=== PATIENT | female | born 1995 | race Caucasian/White ===

== ENCOUNTER 2023-05-02 15:59 | Emergency (ER) | payer MEDICAID, OTHER ==
[~2023-05-02] VITALS: Ht 160 cm; Wt 77.1 kg
[2023-05-02 15:59] VITALS: BP 117/80
--- NOTE | 2023-05-02 15:59 | NUR ---
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
[2023-05-02] MEDS ORDERED: NS 1000ML 1,000 ML IV STA (16:21)
[2023-05-02] MEDS ORDERED: TORADOL IV STA (16:21)
--- NOTE | 2023-05-02 16:25 | ER.PDOC ---
General Chief Complaint: Abdomen Pain Stated Complaint: RIGHT SIDE PAIN,FEVER Time seen by MD: 16:24 Source: patient Exam Limitations: no limitations History of Present Illness Initial Comments Right flank pain and fever for 3 weeks. Patient was seen by a provider and prescribed antibiotic for kidney infection. She finished taking it and continues to experience same symptoms. She occasionally gets nauseated but no vomiting. Severity/Quality: moderate, sharpness Radiation: no radiation Associated Symptoms: nausea/vomiting Exacerbated by: nothing Relieved By: nothing Allergies: Coded Allergies: Sulfa (Sulfonamide Antibiotics) (Verified Allergy, Unknown, 11/23/22) Vital Signs First Vital Signs Date Time Temp Pulse Resp B/P (MAP) Pulse Ox O2 Delivery O2 Flow Rate FiO2 05/02/23 15:59 98.3 97 18 05/02/23 15:59 98 05/02/23 15:59 117/80 (92) Room Air* 0 21 Last Vital Signs Date Time Temp Pulse Resp B/P (MAP) Pulse Ox O2 Delivery O2 Flow Rate FiO2 05/02/23 15:59 98.3 97 18 117/80 (92) 98 Room Air* 0 21 Past Medical History Medical History: no pertinent history Surgical History: cholecystectomy Family History Significant Family History: no pertinent family hx Social History Smoking: non-smoker Alcohol Use: none Drug Use: none Constitutional: see HPI EENTM: no symptoms reported Respiratory: no symptoms reported Cardiovascular: no symptoms reported Gastrointestinal: no symptoms reported Genitourinary: see HPI All Other Systems: Reviewed and Negative Physical Exam General Appearance: No Apparent Distress, WD/WN Neck: Non-Tender, Full Range of Motion, Supple, Normal Inspection Respiratory: chest non-tender, lungs clear, normal breath sounds, no respiratory distress, no accessory muscle use Cardiovascular: Normal Peripheral Pulses, Regular Rate, Rhythm, No Edema, No Gallop, No JVD, No Murmur Gastrointestinal: Normal Bowel Sounds, Non Tender, Soft Back: Normal Inspection, No Vertebral Tenderness, CVA Tenderness (R) Extremities: Normal Range of Motion, Non-Tender, Normal Inspection, No Pedal Edema, No Calf Tenderness, Normal Capillary Refill, Pelvis Stable 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, No Motor/Sensory Deficits, Alert, Normal Mood/Affect, Oriented x 3 Skin: Normal Color, Warm/Dry Lymphatic: No Adenopathy Results/Orders Results/Orders Orders - LINA VEGA MD Cbc With Auto Diff (05/02/23 16:21) Comprehensive Metabolic Panel (05/02/23 16:21) Urinalysis (05/02/23 16:21) Ct Abd/Pelvis Wo Iv Contrast (05/02/23 16:21) 0.9 % Sodium Chloride (Ns 1000ml) (05/02/23 16:21) Ketorolac Tromethamine (Toradol) (05/02/23 16:21) Hcg Qualitative Serum (05/02/23 16:21) Lactic Acid(Ml) (05/02/23 16:23) 0.9 % Sodium Chloride (Ns 1000ml) (05/02/23 16:26) Ketorolac Tromethamine (Toradol) (05/02/23 16:26) Urine Culture (05/02/23 16:15) Ceftriaxone Sodium (Rocephin) (05/02/23 17:02) Ceftriaxone Sodium (Rocephin) (05/02/23 17:03) Vital Signs Date Time Temp Pulse Resp B/P (MAP) Pulse Ox O2 Delivery O2 Flow Rate FiO2 05/02/23 15:59 98.3 97 18 117/80 (92) 98 Room Air* 0 21 05/02/23 15:59 98.3 97 18 98 05/02/23 15:59 98.3 97 18 Administered Medications Medications (Trade) Dose Ordered Sig/Dior Route PRN Reason Start Time Stop Time Status Last Admin Dose Admin Ceftriaxone Sodium 1000 mg/ Sodium Chloride 100 ml @ 100 mls/hr STAT STAT IV 05/02/23 17:02 05/02/23 18:01 UNV 05/02/23 17:07 100 MLS/HR Ketorolac Tromethamine (Toradol) 30 mg STAT STAT IV 05/02/23 16:21 05/02/23 16:23 DC 05/02/23 16:29 30 MG Sodium Chloride 1,000 ml @ 1,200 mls/hr Q50M STAT IV 05/02/23 16:21 05/02/23 17:10 DC 05/02/23 16:28 1,200 MLS/HR Laboratory Tests Test 05/02/23 16:15 White Blood Count 11.0 10^3/uL (4.5-11.0) Red Blood Count 4.83 10^6/uL (4.00-5.20) Hemoglobin 14.9 g/dL (12.0-15.0) Hematocrit 44.5 % (36.0-46.0) Mean Corpuscular Volume 92.1 fL (78-100) Mean Corpuscular Hemoglobin 30.8 pg (26-34) Mean Corpuscular Hemoglobin Concent 33.5 g/dL (33-36.5) Red Cell Distribution Width 13.1 % (11.5-14.5) Platelet Count 222 10^3/uL (150-400) Mean Platelet Volume 10.7 fL (7.8-11.0) Neutrophils (%) (Auto) 88.7 % (41.0-85.0) H Lymphocytes (%) (Auto) 5.3 % (24.0-44.0) *L Monocytes (%) (Auto) 5.6 % (5.0-12.0) Neutrophils # (Auto) 9.8 10^3/uL (1.8-7.7) H Lymphocytes # (Auto) 0.58 10^3/uL1 (1.0-4.8) L Monocytes # (Auto) 0.6 10^3/uL (0.3-0.8) Absolute Immature Granulocyte (auto 0.02 10^3 u/L (0-2) Absolute Eosinophils (auto) 0.0 10^3/uL (0.0-0.2) Immature Granulocytes % 0.20 % (0.00-0.50) Eosinophils % 0.0 % (0.0-5.0) Basophils % 0.2 % (0.0-0.2) Basophils # 0.0 10^3/uL (0.0-0.1) Urine Collection Type RANDOM Urine Color YELLOW Urine Appearance CLEAR Urine Bilirubin NEGATIVE (NEGATIVE) Urine Ketones 3+ (NEGATIVE) H Urine Specific [place] 1.015 (1.005-1.030) Urine pH 8.5 (4.5-8.0) Urine Protein NEGATIVE (NEGATIVE) Urine Urobilinogen 1.0 E.U./dL (0.2) Urine Nitrate NEGATIVE (NEGATIVE) Urine Leukocyte Esterase TRACE (NEGATIVE) H Urine Glucose (Auto)(UA) NEGATIVE (NEGATIVE) Urine Blood TRACE-INTACT (NEGATIVE) H Urine RBC 2-5 RBC/HPF (NONE SEEN) Urine WBC 10-25 WBC/HPF (0-2) H Urine Squamous Epithelial Cells FEW (<=FEW) Urine Bacteria MODERATE (NONE SEEN) H Sodium Level 139 mmol/L (132-145) Potassium Level 3.6 mmol/L (3.6-5.2) Chloride Level 103.0 mmol/L (96-109) Carbon Dioxide Level 23.3 mmol/L (20.0-32) Anion Gap 16.3 Blood Urea Nitrogen 10 mg/dL (7-18) Creatinine 0.94 mg/dL (0.59-1.40) Estimated GFR () 85.8 (>/=60) Est GFR (CKD-EPI)(Non-Afr [place]) 70.9 (>/=60) BUN/Creatinine Ratio 10.0 (10.0-20.0) Glucose Level 94 mg/dL (70-110) Lactic Acid Level 0.6 mmol/L (0.5-1.9) Calcium Level 9.1 mg/dL (8.4-10.5) Total Bilirubin 0.9 mg/dL (0.2-1.0) Aspartate Amino Transferase (AST) 49 U/L (0-35) H Alanine Aminotransferase (ALT) 73 U/L (12-78) Alkaline Phosphatase 154 U/L (50-136) H Total Protein 8.2 g/dL (6.4-8.2) Albumin 4.0 g/dL (3.4-5.0) Globulin 4.2 Albumin/Globulin Ratio 0.952 Serum HCG, Qualitative NEGATIVE (NEGATIVE) Progress Progress CT abdomen/pelvis: 1. Mildly enlarged liver. 2. Normal appendix. 3. Mild bladder wall thickening noted, with a focus of nondependent gas within the bladder. Could be infectious. Correlate with urinalysis. 4. No urinary system calculus. Alkaline phosphatase 154, rest of chemistry is normal. test is negative. Urinalysis consistent with UTI. WBC is 11.0 and hemoglobin 14.9. Patient received 1 L NS, Toradol and Rocephin. She is feeling better. I reviewed her previous records. I also discussed the results with her. She voices understanding. ER DEPART Departure Time of Disposition: 17:37 Disposition: 01 HOME / SELF CARE / HOMELESS Impression: Primary Impression: UTI (urinary tract infection) Additional Impression: Dehydration Condition: Improved Referrals: PCP,UNKNOWN (PCP) PRIMARY CARE PROVIDER Additional Instructions: Macrobid Tylenol Push fluids at home Follow-up with your PCP in 5-7 days Return to ED if worsening or concerns Duration or Time Spent with Pa: 45 min Problem Qualifiers Primary Impression: UTI (urinary tract infection) Urinary tract infection type: site unspecified Hematuria presence: with hematuria Qualified Codes: N39.0 - Urinary tract infection, site not specified; R31.9 - Hematuria, unspecified LINA VEGA MD May 02, 2023 16:25
[2023-05-02] MEDS ORDERED: TORADOL ONE (16:26)
[2023-05-02] MEDS ORDERED: NS 1000ML 1,000 ML ONE (16:26)
[2023-05-02 16:33] LABS: BILIRUBIN,URINE NEGATIVE (NEGATIVE)
[2023-05-02 16:35] LABS: BASOPHIL % 0.2 % (0.0-0.2); LYMPHOCYTES # 0.58 10^3/uL1 (1.0-4.8); LYMPHOCYTES % 5.3 % (24.0-44.0); MEAN CORP HGB 30.8 pg (26-34); MONOCYTES # 0.6 10^3/uL (0.3-0.8); MONOCYTES % 5.6 % (5.0-12.0); NEUTROPHIL # 9.8 10^3/uL (1.8-7.7); NEUTROPHILS % 88.7 % (41.0-85.0); PLATELET COUNT 222 10^3/uL (150-400); RED CELL DISTRIBUTION WIDTH 13.1 % (11.5-14.5)
[2023-05-02 17:02] LABS: CARBON DIOXIDE 23.3 mmol/L (20.0-32)
[2023-05-02] MEDS ORDERED: ROCEPHIN 1,000 MG in NS 100ML 100 ML IV STA (17:02)
[2023-05-02] MEDS ORDERED: ROCEPHIN ONE (17:03)
--- NOTE | 2023-05-02 17:26 | DIREP ---
PROCEDURE:CT ABDOMEN/PELVIS W/O CONTRAST COMPARISON:None. INDICATIONS:Right flank pain and fever TECHNIQUE:Axial images were created through the abdomen and pelvis without intravenous contrast material. No oral contrast was administered. Sagittal and coronal reconstructions were performed from source images. FINDINGS: LUNG BASES:Normal. No visible pulmonary or pleural disease. LIVER:Mildly enlarged liver at 19.6 cm in craniocaudal dimensions. BILIARY:The gallbladder is surgically absent. There is no biliary ductal dilatation. PANCREAS:Normal. No lesion, fluid collection, ductal dilatation, or atrophy. SPLEEN:Normal. No enlargement or focal lesion. ADRENALS:Normal. No mass or enlargement. URINARY TRACT:No renal calculi. The ureters are unremarkable. Mild bladder wall thickening with a a focus of nondependent gas. AORTA/VASCULAR:Normal. No aneurysm. RETROPERITONEUM:Normal. No mass or adenopathy. BOWEL/MESENTERY:The stomach and small bowel are unremarkable. The appendix is unremarkable. The colon is unremarkable. ABDOMINAL WALL:Normal. No mass or hernia. PELVIC ORGANS:Normal. No visible mass. Pelvic organs appropriate for patient age. BONES:Normal for age. No bony lesion or acute fracture. OTHER:Negative. CONCLUSION: 1. Mildly enlarged liver. 2. Normal appendix. 3. Mild bladder wall thickening noted, with a focus of nondependent gas within the bladder. Could be infectious. Correlate with urinalysis. 4. No urinary system calculus. Dictated by: Brian Wick MD. On 05/02/2023 at 05:19 PM
[2023-05-02 17:44] VITALS: BP 107/55
== END 2023-05-02 17:51 | disposition home or self-care (01) ==
LOC: ER 15:59
DX: N39.0 Urinary tract infection, site not specified (principal); E86.0 Dehydration; Z90.49 Acquired absence of other specified parts of digestive tract; Z88.2 Allergy status to sulfonamides
CPT/HCPCS: 99285; 74176; 96365; 96361; 96375; 87086; 80053; 85025; 36415; 83605; 81001; 84703; J7030; J0696 ×2; J1885; 87077; 87186